=== PATIENT | female | born 1995 | race Caucasian/White ===

== ENCOUNTER 2021-03-06 09:45 | Emergency (ER) | payer OTHER ==
[~2021-03-06] VITALS: Wt 84.4 kg
[2021-03-07 08:08] LABS: HEPATITIS B SURFACE AG Negative (Negative)
== END 2021-03-06 15:39 | disposition home or self-care (01) ==
LOC: ED 09:45
PROVIDERS: Physician Assistant
DX: Z77.21 Contact with and (suspected) exposure to potentially hazardous body fluids (principal)